=== PATIENT | female | born 1990 | race Hispanic/Latino ===

== ENCOUNTER 2017-10-21 19:20 | Emergency (ER) | payer OTHER ==
[~2017-10-21] VITALS: Ht 157.5 cm; Wt 56.7 kg
[2017-10-21 19:34] VITALS: BP 126/77
== END 2017-10-21 23:40 | disposition admitted as inpatient to this hospital (09) ==
LOC: ERH 19:20
DX: R10.31 Right lower quadrant pain (principal)
CPT/HCPCS: 81003; 81025; 87086; 99281